=== PATIENT | female | born 1985 | race Caucasian/White ===

== ENCOUNTER 2020-08-28 17:38 | Observation (INO) | payer MEDICAID ==
[~2020-08-28] VITALS: Ht 152.4 cm; Wt 68.0 kg
[2020-08-28] MEDS ORDERED: PNV1TABL76 PO (19:51)
== END 2020-08-28 20:20 | disposition home or self-care (01) ==
LOC: 8 EST LDRP 17:38
PROVIDERS: ADMIT Specialist; ATTEND Specialist
DX: O36.8130 Decreased fetal movements, third trimester, not applicable or unspecified (principal); Z3A.36 36 weeks gestation of pregnancy
CPT/HCPCS: 59025; 76805; 76818; G0378; 99281

== ENCOUNTER 2020-09-08 05:42 | Inpatient (IN) | payer MEDICAID, OTHER ==
[~2020-09-08] VITALS: Ht 152.4 cm; Wt 67.6 kg
[~2020-09-08 05:42] MED LIST: PNV1TABL76 PO
[2020-09-08] MEDS ORDERED: CARBOPROST TROMETHAMINE 250 MCG/ML AMPUL IM PRN (06:45)
[2020-09-08] MEDS ORDERED: NALOXONE HCL 0.4 MG/ML 1ML VIAL IM PRN (06:45)
[2020-09-08] MEDS ORDERED: TERBUTALINE SULFATE 1MG/ML VIAL SUBCUT SCH (06:45)
[2020-09-08] MEDS ORDERED: DEXT 5%/LR + PITOCIN 20UNITS/L 1,000 ML IV SCH ×2 (06:45→08:30)
[2020-09-08] MEDS ORDERED: METHYLERGONOVINE MALEATE 0.2 MG/ML IM PRN (06:45)
[2020-09-08] MEDS ORDERED: LACTATED RINGERS 1,000 ML IV SCH (07:00)
[2020-09-08] MEDS ORDERED: FENTANYL CITRATE/PF 50MCG/ML 2ML VIAL ONE (07:08)
[2020-09-08] MEDS ORDERED: PROPOFOL 200MG/20ML VIAL IV ONE (07:08)
[2020-09-08] MEDS ORDERED: LIDOCAINE HCL/PF 1% 10 MG/ML 5ML VIAL ONE (07:08)
[2020-09-08] MEDS ORDERED: SUCCINYLCHOLINE CHLORIDE 200MG/10ML IV ONE (07:09)
[2020-09-08] MEDS ORDERED: OXYTOCIN 10 UNITS/ML 1ML ONE ×2 (07:11→08:00)
[2020-09-08] MEDS ORDERED: CEFAZOLIN SODIUM 1000MG/VIAL ONE (07:11)
[2020-09-08] MEDS ORDERED: MORPHINE SULFATE/PF 1MG/ML 10ML AMP ONE (07:13)
[2020-09-08] MEDS ORDERED: CITRIC ACID/SODIUM CITRATE SOLN 30ML UDC PO NR (07:15)
[2020-09-08 07:28] LABS: BASOPHILS % 0.4 % (0.0-2.0); EOSINOPHILS % 0.1 % (0.0-5.0); HEMATOCRIT. 36.5 % (36.0-48.0); HEMOGLOBIN. 11.7 g/dL (12.0-16.0); LYMPHOCYTES % 9.4 % (20.0-50.0); MEAN CORPUSCULAR HEMOGLOBIN 26.3 pg (28.0-32.0); MEAN CORPUSCULAR VOLUME 81.7 fL (81.0-99.0); MEAN PLATELET VOLUME 10.5 fl (7.4-10.4); MONOCYTES % 6.1 % (2.0-8.0); PLATELET 284 x1000/uL (130-400); RED BLOOD CELL COUNT 4.46 mill/uL (4.2-5.4); RED CELL DISTRIBUTION WIDTH 14.8 % (11.6-14.6)
[2020-09-08 07:34] LABS: CLARITY URINE CLEAR (CLEAR); COLOR URINE YELLOW (YELLOW); KETONES URINE NEGATIVE (NEGATIVE); LEUKOCYTE ESTERASE URINE 1+ (NEGATIVE); NITRITE URINE NEGATIVE (NEGATIVE); OCCULT BLOOD URINE NEGATIVE (NEGATIVE); PH URINE 5.5 (4.5-8.0); PROTEIN URINE NEGATIVE (NEGATIVE); SPECIFIC GRAVITY URINE 1.018 (1.005-1.030); UROBILINOGEN URINE 0.2 E.U./dL (0.2-1.0)
[2020-09-08 07:38] LABS: INR 0.9; PARTIAL THROMBOPLASTIN TIME 27.8 sec (23.4-31.0); PROTHROMBIN TIME 9.7 sec (9.6-11.0)
[2020-09-08 07:55] LABS: *AMPHETAMINES SCREEN URINE NEGATIVE (NEGATIVE); *BARBITURATES SCREEN URINE NEGATIVE (NEGATIVE); *BENZODIAZEPINES SCREEN URINE NEGATIVE (NEGATIVE); *COCAINE SCREEN URINE NEGATIVE (NEGATIVE); PHENCYCLIDINE URINE SCREEN NEGATIVE (NEGATIVE)
[2020-09-08 07:56] LABS: CANNABINOID URINE SCREEN NEGATIVE (NEGATIVE)
[2020-09-08 07:57] LABS: METHADONE URINE SCREEN NEGATIVE (NEGATIVE); OPIATES URINE SCREEN NEGATIVE (NEGATIVE)
[2020-09-08] MEDS ORDERED: KETOROLAC 60MG/2ML VIAL IM ONE (08:00)
[2020-09-08 08:18] LABS: CHLORIDE 107 mEq/L (98-107)
[2020-09-08] MEDS ORDERED: HEMORRHOIDAL SUPP PR PRN (08:30)
[2020-09-08] MEDS ORDERED: ONDANSETRON HCL 4MG/2ML INJ IV PRN ×2 (08:30)
[2020-09-08] MEDS ORDERED: DIPHENHYDRAMINE 25MG CAPSULE PO PRN (08:30)
[2020-09-08] MEDS ORDERED: OXYCODONE HCL/ACETAMINOPHEN 5/325MG TABLET PO PRN (08:30)
[2020-09-08] MEDS ORDERED: LANOLIN OINT 7GM TUBE TOP PRN (08:30)
[2020-09-08] MEDS ORDERED: BISACODYL 10MG SUPP PR PRN (08:30)
[2020-09-08] MEDS ORDERED: ACETAMINOPHEN WITH CODEINE 300/30MG TABLET PO PRN (08:30)
[2020-09-08] MEDS ORDERED: IBUPROFEN 400MG TABLET PO PRN (08:30)
[2020-09-08] MEDS ORDERED: HYDROMORPHONE HCL/PF 2MG/ML CPJ IV PRN (08:30)
[2020-09-08 08:38] LABS: HEPATITIS B SURFACE ANTIGEN NEGATIVE
[2020-09-08 10:20] VITALS: BP 121/75
[2020-09-08 10:50] VITALS: BP 113/66
[2020-09-08] MEDS: SIMETHICONE 80MG TABLET CHEW PO SCH ×3 (12:30→21:59)
[2020-09-08] MEDS: PRENATAL VIT/FE FUMARATE/FA TABLET PO SCH (12:30)
[2020-09-08] MEDS: MAGNESIUM/ALUMINUM HYDROXIDE/SIMETHICONE 30ML UDC PO SCH ×3 (12:30→21:58)
[2020-09-08 15:55] VITALS: BP 112/69
[2020-09-08] MEDS ORDERED: KETOROLAC 60MG/2ML VIAL IM NR (16:30)
[2020-09-08 19:30] VITALS: BP 109/63
[2020-09-08] MEDS: DOCUSATE SODIUM 100MG CAPSULE PO SCH (21:59)
[2020-09-08] MEDS: KETOROLAC 30MG/ML VIAL IV PRN (22:37)
[2020-09-09] VITALS: BP 118/70
[2020-09-09 04:00] VITALS: BP 129/72
[2020-09-09] MEDS: KETOROLAC 30MG/ML VIAL IV PRN (04:48)
[2020-09-09 06:18] LABS: BASOPHILS % 0.2 % (0.0-2.0); EOSINOPHILS % 0.2 % (0.0-5.0); HEMATOCRIT. 31.9 % (36.0-48.0); HEMOGLOBIN. 10.2 g/dL (12.0-16.0); LYMPHOCYTES % 12.4 % (20.0-50.0); MEAN CORPUSCULAR HEMOGLOBIN 26.4 pg (28.0-32.0); MEAN CORPUSCULAR VOLUME 82.5 fL (81.0-99.0); MEAN PLATELET VOLUME 9.6 fl (7.4-10.4); MONOCYTES % 4.9 % (2.0-8.0); NEUTROPHILS % 82.3 % (40.0-76.0); PLATELET 226 x1000/uL (130-400); RED BLOOD CELL COUNT 3.87 mill/uL (4.2-5.4)
[2020-09-09 07:36] VITALS: BP 108/56
[2020-09-09] MEDS: PRENATAL VIT/FE FUMARATE/FA TABLET PO SCH (08:13)
[2020-09-09] MEDS: IBUPROFEN 800MG TABLET PO PRN (08:13)
[2020-09-09] MEDS: FERROUS SULFATE 325MG TABLET PO SCH ×3 (08:13→17:04)
[2020-09-09] MEDS: MAGNESIUM/ALUMINUM HYDROXIDE/SIMETHICONE 30ML UDC PO SCH ×4 (08:13→20:28)
[2020-09-09] MEDS: SIMETHICONE 80MG TABLET CHEW PO SCH ×4 (08:13→20:27)
[2020-09-09 15:16] VITALS: BP 123/67
[2020-09-09] MEDS ORDERED: TETANUS, DIPHTHERIA, PERTUSSIS VAC/PF 0.5ML (>7YR OLD) IM ONE (16:30)
[2020-09-09 19:30] VITALS: BP 138/82
[2020-09-09] MEDS: DOCUSATE SODIUM 100MG CAPSULE PO SCH (20:27)
[2020-09-10 04:00] VITALS: BP 126/63
[2020-09-10] MEDS: FERROUS SULFATE 325MG TABLET PO SCH ×2 (07:30→13:58)
[2020-09-10] MEDS: MAGNESIUM/ALUMINUM HYDROXIDE/SIMETHICONE 30ML UDC PO SCH ×2 (07:30→13:58)
[2020-09-10 08:00] VITALS: BP 135/87
[2020-09-10] MEDS: SIMETHICONE 80MG TABLET CHEW PO SCH ×2 (08:00→13:00)
[2020-09-10] MEDS: PRENATAL VIT/FE FUMARATE/FA TABLET PO SCH (08:32)
[2020-09-10] MEDS: IBUPROFEN 800MG TABLET PO PRN (08:32)
== END 2020-09-10 15:00 | disposition home or self-care (01) | DRG 540 ==
LOC: OBSVTOIN 05:42 → 8 EST LDRP 05:42 → 8EST 11:52
PROVIDERS: ADMIT Specialist; ATTEND Specialist
PROC: 10D00Z1 Extraction of Products of Conception, Low, Open Approach (ICD-10-PCS; principal; 2020-09-08)
DX: O34.211 Maternal care for low transverse scar from previous cesarean delivery (principal); Z37.0 Single live birth; Z3A.37 37 weeks gestation of pregnancy
CPT/HCPCS: 36415; 80051; 80053; 80305; 81003; 84550; 85025; 85384; 86592; 86703; 86762; 86850; 86900; 87340; 88307; 90715; 99281; J0330; J0690; J1885; J2274; J2590; J2704; J3010; J3105; J3490; A4315